=== PATIENT | male | born 1985 | race Caucasian/White ===

== ENCOUNTER 2021-10-28 20:45 | Emergency (ER) | payer OTHER ==
[2021-10-28 21:03] VITALS: TEMP 98.1; BMI 29.8
[2021-10-28] MEDS ORDERED: DIPHTH,PERTUSS(ACELL),TET 0.5 ML DISP.SYRIN IM ONE ×2 (21:16→21:17)
== END 2021-10-28 21:39 | disposition home or self-care (01) ==
LOC: FER 20:45
PROC: 3E0234Z Introduction of Serum, Toxoid and Vaccine into Muscle, Percutaneous Approach (ICD-10-PCS; principal; 2021-10-28)
DX: S01.81XA Laceration without foreign body of other part of head, initial encounter (principal)
CPT/HCPCS: 90715; 99283-25